=== PATIENT | female | born 1995 | race Two or more races ===

== ENCOUNTER 2018-02-13 23:16 | Emergency (ER) | payer MEDICAID ==
[~2018-02-13] VITALS: Ht 170.2 cm; Wt 99.8 kg
[2018-02-13 23:22] VITALS: BP 149/80
[2018-02-14] MEDS ORDERED: KETOROLAC TROMETH 60MG/2ML VIAL IM ONE (01:30)
[2018-02-14] MEDS ORDERED: HYDROcodone-ACET 10/325MG TAB PO ONE (01:45)
== END 2018-02-14 01:36 | disposition home or self-care (01) ==
LOC: ER 23:20
DX: S93.401A Sprain of unspecified ligament of right ankle, initial encounter (principal); X50.0XXA Overexertion from strenuous movement or load, initial encounter; Y93.89 Activity, other specified; Y99.8 Other external cause status; Y92.89 Other specified places as the place of occurrence of the external cause
CPT/HCPCS: 29515; 73610; 96372; 99284; J1885

== ENCOUNTER 2018-08-09 06:12 | Emergency (ER) | payer MEDICAID ==
[~2018-08-09] VITALS: Ht 172.7 cm; Wt 99.8 kg
[2018-08-09 08:53] VITALS: BP 165/87
== END 2018-08-09 09:24 | disposition home or self-care (01) ==
LOC: ER 06:12
DX: J03.90 Acute tonsillitis, unspecified (principal); J40 Bronchitis, not specified as acute or chronic
CPT/HCPCS: 71046

== ENCOUNTER 2019-04-24 19:29 | Emergency (ER) | payer SELFPAY ==
[~2019-04-24] VITALS: Ht 172.7 cm; Wt 102.1 kg
[2019-04-24] MEDS ORDERED: DexAMETHasone SOD PHOS 10MG/1ML VIAL INJ IM ONE (21:15)
[2019-04-24] MEDS ORDERED: ACETAMINOPHEN/CODEINE#3 (300/30mg) TAB PO ONE (21:15)
[2019-04-24 21:49] VITALS: BP 128/73
== END 2019-04-24 22:00 | disposition home or self-care (01) ==
LOC: ER 19:29
DX: G44.209 Tension-type headache, unspecified, not intractable (principal); J40 Bronchitis, not specified as acute or chronic; J06.9 Acute upper respiratory infection, unspecified
CPT/HCPCS: 96372; 99283; J1100

== ENCOUNTER 2020-10-01 11:44 | Emergency (ER) | payer SELFPAY ==
[~2020-10-01] VITALS: Ht 172.7 cm; Wt 104.3 kg
[2020-10-01 11:45] VITALS: BP 133/61
== END 2020-10-01 14:09 | disposition home or self-care (01) ==
LOC: ER 11:44
DX: H10.32 Unspecified acute conjunctivitis, left eye (principal)

== ENCOUNTER 2020-12-24 10:11 | Emergency (ER) | payer SELFPAY ==
[~2020-12-24] VITALS: Ht 170.2 cm; Wt 106.6 kg
[2020-12-24 10:44] LABS: Basophils # (auto) 0.1 10 ^3/uL (0-0.2); Eosinophils # (auto) 0.2 10 ^3/uL (0-0.8); Eosinophils % (auto) 1.7 % (0.0-7.0); Hematocrit 40.4 % (36.0-46.0); Hemoglobin 14.1 g/dL (12.2-16.2); Lymphocytes # (auto) 3.3 10 ^3/uL (0.4-5.4); Lymphocytes % (auto) 33.4 % (10.0-50.0); Mean Corpuscular Hemoglobin 32.4 pg (28.0-32.0); Mean Corpuscular Hgb Conc. 34.9 g/dL (32.0-36.0); Mean Corpuscular Volume 92.8 fL (80.0-100.0); Monocytes # (auto) 0.5 10 ^3/uL (0-1.3); Monocytes % (auto) 4.7 % (0.0-12.0); Neutrophils # (auto) 5.8 10 ^3/uL (1.6-8.6); Neutrophils % (auto) 59.2 % (37.0-80.0); Nucleated Red Blood Cells % 0.2 %; Platelet Count (auto) 264 10^3/uL (140-450); Red Blood Cells 4.36 10^6/uL (4.0-5.20); Red Cell Distribution Width 12.5 % (11.8-14.3); White Blood Cell 9.8 10^3/uL (4.4-10.8)
[2020-12-24 10:46] LABS: Urine Bacteria NONE SEEN /hpf (None Seen); Urine Blood Negative /uL (Negative); Urine Specific Gravity 1.021 (1.001-1.035); Urine WBC 1 /hpf (0 - 5)
[2020-12-24 10:51] VITALS: BP 140/98
[2020-12-24 10:59] LABS: Calcium 8.9 mg/dL (8.5-10.1); Potassium 4.1 mmol/L (3.5-5.1)
[2020-12-24 11:01] LABS: BUN/Creatinine Ratio 13.4
[2020-12-24] MEDS ORDERED: KETOROLAC TROMETH 60MG/2ML VIAL IM ONE (11:45)
[2020-12-24 12:06] LABS: Alanine Aminotransferase 93 U/L (13-56); Albumin 4.1 g/dL (3.4-5.0); Alkaline Phosphatase 67 U/L (45-117); Aspartate Aminotransferase 45 U/L (15-37); Bilirubin, Direct < 0.1 mg/dL (0-0.2); Bilirubin, Total 0.3 mg/dL (0.2-1.0); Lipase 79 U/L (73-393); Total Protein 8.1 g/dL (6.4-8.2)
== END 2020-12-24 12:44 | disposition home or self-care (01) ==
LOC: ER 10:11
DX: R10.9 Unspecified abdominal pain (principal); K86.2 Cyst of pancreas
CPT/HCPCS: 36415; 74176; 80048; 80076; 81001; 81025; 83690; 85025; 85049; 96372; 99284; J1885

== ENCOUNTER 2021-04-24 11:32 | Emergency (ER) | payer SELFPAY ==
[~2021-04-24] VITALS: Ht 170.2 cm; Wt 117.9 kg
[2021-04-24 12:46] LABS: Urine Bacteria FEW /hpf (None Seen); Urine Blood 2+ /uL (Negative); Urine Specific Gravity 1.024 (1.001-1.035); Urine WBC 11 /hpf (0 - 5)
[2021-04-24 13:32] LABS: Basophils # (auto) 0 10 ^3/uL (0-0.2); Basophils % (auto) 0.4 % (0.0-2.0); Eosinophils # (auto) 0.1 10 ^3/uL (0-0.8); Hematocrit 41.1 % (36.0-46.0); Lymphocytes % (auto) 30.9 % (10.0-50.0); Mean Corpuscular Hemoglobin 32.1 pg (28.0-32.0); Mean Corpuscular Hgb Conc. 34.1 g/dL (32.0-36.0); Mean Corpuscular Volume 94.1 fL (80.0-100.0); Monocytes # (auto) 0.5 10 ^3/uL (0-1.3); Monocytes % (auto) 4.9 % (0.0-12.0); Neutrophils % (auto) 62.8 % (37.0-80.0); Nucleated Red Blood Cells % 0.1 %; Red Blood Cells 4.37 10^6/uL (4.0-5.20); Red Cell Distribution Width 12.5 % (11.8-14.3); White Blood Cell 9.6 10^3/uL (4.4-10.8)
[2021-04-24 13:41] LABS: Albumin 4.3 g/dL (3.4-5.0); Calcium 9.5 mg/dL (8.5-10.1); Potassium 4.5 mmol/L (3.5-5.1)
[2021-04-24 13:43] LABS: INR 1.05 (0.9-1.15)
[2021-04-24 13:44] LABS: BUN/Creatinine Ratio 15.8; Bilirubin, Total 0.3 mg/dL (0.2-1.0); Total Protein 8.1 g/dL (6.4-8.2)
[2021-04-24] MEDS ORDERED: ACETAMINOPHEN 325 MG TAB PO ONE (15:00)
[2021-04-24 15:50] VITALS: BP 132/73
== END 2021-04-24 13:27 | disposition home or self-care (01) ==
LOC: ER 11:32
DX: N39.0 Urinary tract infection, site not specified (principal); F12.10 Cannabis abuse, uncomplicated
CPT/HCPCS: 36415; 80053; 81001; 83605; 83690; 83735; 84702; 85025; 85610

== ENCOUNTER 2021-06-25 01:24 | Emergency (ER) | payer MEDICAID, SELFPAY ==
[~2021-06-25] VITALS: Ht 172.7 cm; Wt 108.9 kg
[2021-06-25 01:44] VITALS: BP 142/61
[2021-06-25] MEDS ORDERED: IBUPROFEN 800 MG TAB PO ONE (05:00)
[2021-06-25] MEDS ORDERED: ACETAMINOPHEN 500 MG TAB PO ONE (05:00)
[2021-06-25] MEDS ORDERED: IBUP800T27 PO (05:15)
[2021-06-25] MEDS ORDERED: ONDA-144 PO (05:15)
== END 2021-06-25 05:36 | disposition home or self-care (01) ==
LOC: ER 01:24
DX: J06.9 Acute upper respiratory infection, unspecified (principal); F12.10 Cannabis abuse, uncomplicated; Z20.822 Contact with and (suspected) exposure to COVID-19
CPT/HCPCS: 36415; 80329; 87426

== ENCOUNTER 2025-05-01 08:46 | Inpatient (IN) | payer MEDICAID, OTHER ==
[~2025-05-01] VITALS: Ht 170.2 cm; Wt 106.0 kg
[~2025-05-01 08:46] MED LIST: IBUP-1456 PO; ONDA-144 PO
[2025-05-01] MEDS: SODIUM CHLORIDE 0.9% 1,000 ML IV ONE ×2 (09:45→12:15)
--- NOTE | 2025-05-01 09:46 | ED.PDOC ---
GI ASSESSMENT HPI Comments Ms. Herman is a 29-year-old female with prior history of cholelithiasis, who presents today with chief complaint of abdominal pain. The patient refers that for the last 4 days she has had pressure/stabbing pain in right lower quadrant which radiates towards her groin, 10/10 intensity, worsens with sitting still or changing positions, associated with nausea, vomiting, diaphoresis, chills, without relieving factors. She denies fever, palpitations, diarrhea, hematuria, dysuria, changes in urine, back pain, chest pain, and shortness of breath. Due to persistence of symptoms, she presents to the emergency department for evaluation. On initial evaluation, the patient seems uncomfortable due to pain, diaphoretic, hypertensive, with other vitals within normal range. Chief Complaint: Abdominal Pain Time Seen by MD: 09:03 Primary Care Provider: NONE Reviewed Notes: Nurses Notes, Medications, Allergies (No allergies to medications) Allergies: Coded Allergies: NO KNOWN ALLERGIES (Unverified , 10/01/20) Home Meds Active Scripts Ondansetron (Zofran) 4 Mg Tab, 1 TAB PO Q6HR, #20 TAB 0 Refills Prov:KALEB SINGH 06/25/21 Ibuprofen (Ibuprofen) 800 Mg Tab, 1 TAB PO TID for 10 Days, #30 TAB 0 Refills Prov:KALEB SINGH 06/25/21 Information Source: Patient Mode of Arrival: Ambulatory Timing: Days Duration: Since onset Prehospital treatment: None Quality: Stabbing Vomitus: Watery Stool: Normal Severity: Moderate Recent: None Recent Hx of: None Pain Location: RLQ Modifying Factors: Movement, Lying still Associated sign and symptoms: Nausea, Vomiting Past Medical History Past Medical History (Other): Cholelithiasis Surgical History: Denies all surgeries [employer] History: No Pertinent [employer] History Family History Family History: Reviewed,noncontributory to illness Social History Smoker: Non-Smoker Alcohol: Denies ETOH Use Drugs: Marijuana Lives In: Home Constitutional: reports: chills, diaphoresis; denies: fatigue, fever, malaise, sweats, weakness EENTM: denies: blurred vision, double vision, nasal discharge, nose congestion, photophobia, throat pain Respiratory: denies: cough, hemoptysis, orthopnea, shortness of breath Cardiovascular: denies: chest pain, dizzy spells, diaphoresis, Dyspnea on exertion, edema, irregular heart beat, left arm pain, lightheadedness, palpitations, syncope Gastrointestinal: reports: abdominal pain, nausea, vomiting; denies: abdomen distended, constipated, diarrhea, hematemesis, melena, poor appetite, poor fluid intake, rectal bleeding Genitourinary: denies: burning, dysuria, flank pain, frequency, hematuria, incontinence, pain, urgency Neurological: reports: dizziness; denies: fainting, headache, numbness, paresthesia, pre-existing deficit, seizure, speech problems, tingling, tremors, weakness Musculoskeletal: denies: back pain, joint pain, joint swelling, muscle pain, muscle stiffness, neck pain Integumetry: denies: bruises, laceration, lesions, lumps, rash, wounds Physical Exam General Appearance: Moderate Distress, Obese HEENT: Normal ENT Inspection, PERRL/EOMI, Pharynx Normal Neck: Full Range of Motion, Non-Tender, Normal Inspection Respiratory: Chest Non-Tender, Lungs Clear, No Accessory Muscle Use, No Respira tory Distress, Normal Breath Sounds Cardiovascular: No Edema, No Murmur, Normal Peripheral Pulses, Regular Rate/Rhythm Breast Exam: Deferred Gastrointestinal: Other ( Obese, Abdomen nondistended, normoactive bowel sounds, pain to palpation in bilateral lower quadrants, mild right CVA tenderness) Genitalia: Deferred Pelvic: Deferred Rectal: Deferred Extremities: Normal capillary refill, Normal inspection, Normal range of motion, Non-tender, No pedal edema Neurologic: Alert, Normal Affect, Normal Mood Cerebellar Function: Normal Reflexes: NOT DONE Skin: Normal Color Peripheral Pulses: 3+ dorsalis pedis (R), 3+ dorsalis pedis (L) Lymphatic: Other (No cervical adenopathy) Was a procedure done? Was a procedure done?: No GI differential Dx Differential Diagnosis: Appendicitis, Complete , Incomplete , Inevitable , Missed , Bowel Obstruction, Cholangitis, Cholecystitis, Constipation, Diverticular disease, Ectopic , Gastritis/PUD, Gastroenteritis, Hepatitis, Pancreatitis, Urinary Obstruction, UTI, Urolithiasis X-Ray, Labs, Meds, VS Vital Signs Date Time Temp Pulse Resp B/P (MAP) Pulse Ox O2 Delivery O2 Flow Rate FiO2 05/01/25 12:21 97.6 55 16 138/78 (98) 100 97.6 05/01/25 10:31 62 17 153/82 05/01/25 10:10 97.6 62 17 153/82 (105) 100 97.6 05/01/25 10:10 62 17 100 Room Air 05/01/25 08:55 97.6 70 20 160/93 100 97.6 Lab Test 05/01/25 10:16 05/01/25 10:02 Range/Units White Blood Count 11.8 H 4.4-10.8 10^3/uL Red Blood Count 4.20 4.0-5.20 10^6/uL Hemoglobin 13.1 12.2-16.2 g/dL Hematocrit 38.8 36.0-46.0 % Mean Corpuscular Volume 92.2 80.0-100.0 fL Mean Corpuscular Hemoglobin 31.1 28.0-32.0 pg Mean Corpuscular Hemoglobin Concent 33.7 32.0-36.0 g/dL Red Cell Distribution Width 12.8 11.8-14.3 % Platelet Count 282 140-450 10^3/uL Mean Platelet Volume 9.9 6.9-10.8 fL Neutrophils (%) (Auto) 82.2 H 37.0-80.0 % Lymphocytes (%) (Auto) 14.6 10.0-50.0 % Monocytes (%) (Auto) 2.5 0.0-12.0 % Eosinophils (%) (Auto) 0.4 0.0-7.0 % Basophils (%) (Auto) 0.3 0.0-2.0 % Neutrophils # (Auto) 9.7 H 1.6-8.6 10 ^3/uL Lymphocytes # (Auto) 1.7 0.4-5.4 10 ^3/uL Monocytes # (Auto) 0.3 0-1.3 10 ^3/uL Eosinophils # (Auto) 0 0-0.8 10 ^3/uL Basophils # (Auto) 0 0-0.2 10 ^3/uL Nucleated Red Blood Cells 0.1 % Sodium Level 142 136-145 mmol/L Potassium Level 3.1 L 3.5-5.1 mmol/L Chloride Level 106 98-107 mmol/L Carbon Dioxide Level 23 20-31 mmol/L Anion Gap 13 5-15 Blood Urea Nitrogen 10 9-23 mg/dL Creatinine 0.73 0.550-1.02 mg/dL Glomerular Filtration Rate Calc 114 >90 mL/min BUN/Creatinine Ratio 13.7 10.0-20.0 Serum Glucose 136 H 74-106 mg/dL Calcium Level 9.4 8.7-10.4 mg/dL Total Bilirubin 0.5 0.2-1.0 mg/dL Aspartate Amino Transferase (AST) 16 13-40 U/L Alanine Aminotransferase (ALT) 18 7-40 U/L Alkaline Phosphatase 54 46-116 U/L Total Protein 7.8 5.7-8.2 g/dL Albumin 4.8 3.2-4.8 g/dL Lipase 40 12-53 U/L Urine Color Light-yellow Yellow Urine Clarity Clear Clear Urine pH 5.0 5.0-9.0 Urine Specific [place] 1.025 1.001-1.035 Urine Protein Trace H Negative Urine Ketones 1+ H Negative Urine Blood 2+ H Negative /uL Urine Nitrite Negative Negative Urine Bilirubin Negative Negative Urine Urobilinogen Normal Negative mg/dL Urine Leukocyte Esterase Negative Negative /uL Urine RBC 2 0 - 4 /hpf Urine Microscopic WBC < 1 0-5 /HPF Urine Squamous Epithelial Cells Few <5 /hpf Urine Bacteria None seen None Seen /hpf Urine Mucus Few None Seen Urine Yeast (Budding) Occasional None Seen /hpf Urine Glucose Normal Normal mg/dL Urine Test Negative Negative Urine Opiates Screen Pending Urine Fentanyl Screen Pending Urine Barbiturates Screen Pending Urine Phencyclidine Screen Pending Urine Amphetamines Screen Pending Urine Benzodiazepines Screen Pending Urine Cocaine Screen Pending Urine Cannabinoids Screen Pending Current Medications Medications (Trade) Dose Ordered Sig/Devin Route Start Time Stop Time Status Last Admin Sodium Chloride 1,000 ml @ 1,000 mls/hr Q1H ONCE IV 05/01/25 09:45 05/01/25 10:44 DC 05/01/25 09:45 Ondansetron HCl (Zofran) 4 mg ONCE ONCE IV 05/01/25 09:45 05/01/25 09:48 DC 05/01/25 10:30 Morphine Sulfate 2 mg ONCE ONCE IV 05/01/25 09:45 05/01/25 09:48 DC 05/01/25 10:31 Ketorolac Tromethamine (Toradol Injection) 30 mg ONCE ONCE IV 05/01/25 11:30 05/01/25 11:31 DC 05/01/25 11:51 Sodium Chloride 1,000 ml @ 1,000 mls/hr Q1H ONCE IV 05/01/25 11:45 05/01/25 12:44 DC 05/01/25 12:15 IV Hep-Lock was established The patient was given a normal saline at 1 L bolus. The patient was given Zofran 4 mg IV push The patient was given morphine 2 mg IV push for the pain The patient was given ketorolac 30 mg IV push The patient was given a 1 L bolus of normal saline The patient's urine test is positive for ketones The CBC shows an elevated white blood cell count of 11.8 The rest of the CBC is within normal limits The patient is still having persistent vomiting The patient's CAT scan of the abdomen and pelvis shows: Impression: No acute noncontrast CT abnormality of the abdomen/pelvis. Mildly enlarging 3 cm pancreatic body / neck cyst. Recommend nonemergent MRI/ MRCP with and without IV contrast for further evaluation At this time the patient is being admitted Images Reviewed?: Images reviewed and evaluated by me Time of 1ST Reevaluation: 11:45 Reevaluation 1ST: Improved Patient Education/Counseling: Diagnosis, Treatment Family Education/Counseling: Diagnosis, Treatment Comments The patient presents today with chief complaint of abdominal pain Initial evaluation, the patient seems distress due to pain, diaphoretic, hypotensive, saturating appropriately on room air Physical exam is positive for pain on palpation of all quadrants concentrated mainly in right lower quadrant CBC shows mild leukocytosis with neutrophilia, CMP is significant for hypokalemia at 3.1, LFTs and lipase are within normal range , UA without significant findings, urine test is negative Abdominal CT with contrast shows no acute intra-abdominal findings except for a mildly enlarging 3 cm pancreatic neck/body cyst, of which the patient is already aware The patient has been given morphine 2 mg IV and Toradol IV for pain, 2 1000 cc NS boluses, and Zofran 4 mg IV for nausea, potassium 50 mEq effervescent tablet On re-evaluation, the patient still presents intense pain and nausea, continues to be hypertensive, other vitals are within normal range The patient will be admitted for further workup and fluid resuscitation and pain management SEPSIS Sepsis Screen Date sepsis recognized/suspect: May 01, 2025 Time Sepsis recognized/suspect: 0857 Recent Procedure: No On Antibiotic Therapy: No Respiratory Rate >20: No Heart Rate >90: No Temp<36 C (96.8 F) or >38.3 C: No SBP <90 or MAP <65 mmHG: No New Acute Mental Status Change: No Is the patient on CPAP, BIPAP,: No Physician Orders Ct Ab Pel Wo Con-No Oral Or Iv (05/01/25 09:42) Drug Screen (05/01/25 10:26) Vital Signs Date Time Temp Pulse Resp B/P (MAP) Pulse Ox O2 Delivery O2 Flow Rate FiO2 05/01/25 12:21 97.6 55 16 138/78 (98) 100 97.6 05/01/25 10:31 62 17 153/82 05/01/25 10:10 97.6 62 17 153/82 (105) 100 97.6 05/01/25 10:10 62 17 100 Room Air 05/01/25 08:55 97.6 70 20 160/93 100 97.6 Laboratory Tests Test 05/01/25 10:16 White Blood Count 11.8 10^3/uL (4.4-10.8) H Medications Medications Dose Ordered Sig/Devin Route Start Time Stop Time Status Last Admin Dose Admin Ketorolac Tromethamine 30 mg ONCE ONCE IV 05/01/25 11:30 05/01/25 11:31 DC 05/01/25 11:51 Morphine Sulfate 2 mg ONCE ONCE IV 05/01/25 09:45 05/01/25 09:48 DC 05/01/25 10:31 Ondansetron HCl 4 mg ONCE ONCE IV 05/01/25 09:45 05/01/25 09:48 DC 05/01/25 10:30 Sodium Chloride 1,000 ml @ 1,000 mls/hr Q1H ONCE IV 05/01/25 09:45 05/01/25 10:44 DC 05/01/25 09:45 Sodium Chloride 1,000 ml @ 1,000 mls/hr Q1H ONCE IV 05/01/25 11:45 05/01/25 12:44 DC 05/01/25 12:15 Departure 1 Departure Time of Disposition: 12:33 Impression: Primary Impression: Intractable abdominal pain Disposition: ADMITTED INPATIENT Admit to: Med Surg Condition: Stable Critical Care Note Critical Care Time?: No Stability Stability form required: Yes Unstable for transfer: ED Physician Assesment (Clinical assesment) Heart Score Heart Score: Heart Score Response (Comments) Value History N/A 0 EKG N/A 0 Age N/A 0 Risk Factors N/A 0 Troponin N/A 0 Total 0 HOLLY MCCAULEY May 01, 2025 09:46 LATISHA HARRIS MD May 01, 2025 12:46
[2025-05-01 10:17] LABS: Urine Budding Yeast OCCASIONAL /hpf (None Seen); Urine Protein, UAD TRACE (Negative)
[2025-05-01] MEDS: ONDANSETRON HCL 4 MG/2 ML VIAL IV ONE ×2 (10:30→12:22)
[2025-05-01] MEDS: MORPHINE SULFATE INJ 2 MG/ml SYRG IV ONE (10:31)
[2025-05-01 10:55] LABS: Hematocrit 38.8 % (36.0-46.0); Hemoglobin 13.1 g/dL (12.2-16.2); Mean Corpuscular Hemoglobin 31.1 pg (28.0-32.0); Mean Corpuscular Volume 92.2 fL (80.0-100.0); Nucleated Red Blood Cells % 0.1 %
--- NOTE | 2025-05-01 10:57 | DVH ---
CLINICAL HISTORY: Abdominal pain TECHNIQUE: CT of the abdomen and pelvis was performed without IV contrast. This exam was performed according to our departmental dose optimization program. Up-to-date CT equipment and radiation dose reduction techniques are utilized as appropriate. CTDI 22 DLP 1170 COMPARISON: US ABDOMEN COMPLETE on DOS: 04/20/23, CT ABD PELVIS WO CONTRAST on DOS: 12/24/20 FINDINGS: Abdomen/Pelvis: The spleen, adrenal glands, kidneys, gallbladder, liver, bladder, and uterus are grossly unremarkable. There is a 3 cm hypodense lesion within the pancreatic neck / body, slightly increased in size from previous study. The abdominal aorta is normal in course and caliber. There are no significant atherosclerotic calcifications. There is no free intraperitoneal air or fluid. There is no enlarged abdominal pelvic lymph node. There is no bowel wall thickening or dilatation. The appendix is normal. Other: The imaged lower thorax is unremarkable. No acute osseous abnormality is evident. Impression: No acute noncontrast CT abnormality of the abdomen/pelvis. Mildly enlarging 3 cm pancreatic body / neck cyst. Recommend nonemergent MRI/ MRCP with and without IV contrast for further evaluation
[2025-05-01 11:11] LABS: Alanine Aminotransferase 18 U/L (7-40); Albumin 4.8 g/dL (3.2-4.8); Alkaline Phosphatase 54 U/L (46-116); Anion Gap 13 (5-15); BUN/Creatinine Ratio 13.7 (10.0-20.0); Bilirubin, Total 0.5 mg/dL (0.2-1.0); Blood Urea Nitrogen 10 mg/dL (9-23); Calcium 9.4 mg/dL (8.7-10.4); Carbon Dioxide 23 mmol/L (20-31); Chloride 106 mmol/L (98-107); Sodium 142 mmol/L (136-145); Total Protein 7.8 g/dL (5.7-8.2)
[2025-05-01 11:16] LABS: Glucose 136 mg/dL (74-106); Potassium 3.1 mmol/L (3.5-5.1)
[2025-05-01] MEDS ORDERED: POTASSIUM CHL 20MEQ/100ML 100 ML IV SCH (11:30)
[2025-05-01 11:42] LABS: Lipase 40 U/L (12-53)
[2025-05-01] MEDS: KETOROLAC TROMETH 30 MG/ML 1ML VIAL IV ONE (11:51)
[2025-05-01] MEDS: POTASSIUM EFFERVESENT TAB 25 MEQ PO ONE (12:48)
[2025-05-01] MEDS ORDERED: ONDANSETRON HCL 4 MG/2 ML VIAL IV PRN (14:45)
[2025-05-01] MEDS ORDERED: NITROGLYCERIN 0.4 MG SL TAB SL PRN (14:45)
[2025-05-01] MEDS ORDERED: MORPHINE SULFATE INJ 2 MG/ml SYRG IV PRN ×2 (14:45)
[2025-05-01] MEDS ORDERED: ACETAMINOPHEN 325 MG TAB PO PRN (14:45)
--- NOTE | 2025-05-01 15:18 | DVHHPRES ---
History of Present Illness Resident Creating Document: RUPESH HANCOCK RESIDENT History of Present Illness Ms. Herman is a 29-year-old female with prior history of cholelithiasis, who presents today with chief complaint of abdominal pain. The patient refers that for the last 4 days she has had pressure/stabbing pain in right lower quadrant which radiates towards her groin, 10/10 intensity, worsens with sitting still or changing positions, associated with nausea, vomiting, diaphoresis, chills, bloating without relieving factors. patient reported that she is sexually active with 1 male partner, recently have STI panel which was negative. She denies fever, palpitations, diarrhea, hematuria, dysuria, changes in urine, back pain, chest pain, and shortness of breath. PMH: Cholelithiasis PSH: None Family history: None Social history: Lives at home. Smokes marijuana but denies tobacco, alcohol and other drug abuse Allergies: No known allergies Home medications: None Patient seen and examined at the bedside. Patient is currently reporting abdominal pain which is 5/10 in intensity due to pain management denies nausea, vomiting. Rest of ROS is negative Review of Systems Allergies: Coded Allergies: NO KNOWN ALLERGIES (Unverified , 10/01/20) Medications Current Medications Medications Dose Ordered Sig/Devin Route Start Time Stop Time Status Last Admin Dose Admin Sodium Chloride 10 ml Q8HR IV 05/01/25 22:00 Ondansetron HCl 4 mg Q4HP PRN IV 05/01/25 14:45 Acetaminophen 650 mg Q6HP PRN PO 05/01/25 14:45 Morphine Sulfate 2 mg Q4HPRN PRN IV 05/01/25 14:45 Nitroglycerin 0.4 mg Q5MINP PRN SL 05/01/25 14:45 Morphine Sulfate 2 mg Q30M PRN IV 05/01/25 14:45 Pantoprazole Sodium 40 mg DAILY IV 05/02/25 10:00 UNV Exam Vital Signs Vital Signs Date Time Temp Pulse Resp B/P (MAP) Pulse Ox O2 Delivery O2 Flow Rate FiO2 05/01/25 12:21 55 16 138/78 05/01/25 12:21 97.6 100 97.6 05/01/25 10:10 Room Air Exam Pt is lying on bed General Appearance: Alert, Oriented X3, Cooperative, Not in acute distress HEENT: Atraumatic, Mucous membranes moist/pink Respiratory: Clear to auscultation, Normal air movement, No added sounds Cardiovascular: Regular rate, Normal S1, Normal S2, No murmurs Abdominal: Active bowel sounds, Soft, no distention, right upper quadrant and suprapubic tenderness Extremities: No edema, Normal pulses, No tenderness/swelling Skin: No Significant rash, except past surgical scars Neuro: Normal speech, sensorimotor deficits none Psych/Mental Status: Mental status NL, Mood NL Nurse was there as abrasive grader during examination Labs/Xrays Labs Test 05/01/25 10:16 05/01/25 10:02 Range/Units White Blood Count 11.8 H 4.4-10.8 10^3/uL Red Blood Count 4.20 4.0-5.20 10^6/uL Hemoglobin 13.1 12.2-16.2 g/dL Hematocrit 38.8 36.0-46.0 % Mean Corpuscular Volume 92.2 80.0-100.0 fL Mean Corpuscular Hemoglobin 31.1 28.0-32.0 pg Mean Corpuscular Hemoglobin Concent 33.7 32.0-36.0 g/dL Red Cell Distribution Width 12.8 11.8-14.3 % Platelet Count 282 140-450 10^3/uL Mean Platelet Volume 9.9 6.9-10.8 fL Neutrophils (%) (Auto) 82.2 H 37.0-80.0 % Lymphocytes (%) (Auto) 14.6 10.0-50.0 % Monocytes (%) (Auto) 2.5 0.0-12.0 % Eosinophils (%) (Auto) 0.4 0.0-7.0 % Basophils (%) (Auto) 0.3 0.0-2.0 % Neutrophils # (Auto) 9.7 H 1.6-8.6 10 ^3/uL Lymphocytes # (Auto) 1.7 0.4-5.4 10 ^3/uL Monocytes # (Auto) 0.3 0-1.3 10 ^3/uL Eosinophils # (Auto) 0 0-0.8 10 ^3/uL Basophils # (Auto) 0 0-0.2 10 ^3/uL Nucleated Red Blood Cells 0.1 % Sodium Level 142 136-145 mmol/L Potassium Level 3.1 L 3.5-5.1 mmol/L Chloride Level 106 98-107 mmol/L Carbon Dioxide Level 23 20-31 mmol/L Anion Gap 13 5-15 Blood Urea Nitrogen 10 9-23 mg/dL Creatinine 0.73 0.550-1.02 mg/dL Glomerular Filtration Rate Calc 114 >90 mL/min BUN/Creatinine Ratio 13.7 10.0-20.0 Serum Glucose 136 H 74-106 mg/dL Calcium Level 9.4 8.7-10.4 mg/dL Total Bilirubin 0.5 0.2-1.0 mg/dL Aspartate Amino Transferase (AST) 16 13-40 U/L Alanine Aminotransferase (ALT) 18 7-40 U/L Alkaline Phosphatase 54 46-116 U/L Total Protein 7.8 5.7-8.2 g/dL Albumin 4.8 3.2-4.8 g/dL Lipase 40 12-53 U/L Urine Color Light-yellow Yellow Urine Clarity Clear Clear Urine pH 5.0 5.0-9.0 Urine Specific [place] 1.025 1.001-1.035 Urine Protein Trace H Negative Urine Ketones 1+ H Negative Urine Blood 2+ H Negative /uL Urine Nitrite Negative Negative Urine Bilirubin Negative Negative Urine Urobilinogen Normal Negative mg/dL Urine Leukocyte Esterase Negative Negative /uL Urine RBC 2 0 - 4 /hpf Urine Microscopic WBC < 1 0-5 /HPF Urine Squamous Epithelial Cells Few <5 /hpf Urine Bacteria None seen None Seen /hpf Urine Mucus Few None Seen Urine Yeast (Budding) Occasional None Seen /hpf Urine Glucose Normal Normal mg/dL Urine Test Negative Negative SEPSIS Sepsis Screen Date sepsis recognized/suspect: May 01, 2025 Time Sepsis recognized/suspect: 08 Recent Procedure: No On Antibiotic Therapy: No Respiratory Rate >20: No Heart Rate >90: No Temp<36 C (96.8 F) or >38.3 C: No SBP <90 or MAP <65 mmHG: No New Acute Mental Status Change: No Is the patient on CPAP, BIPAP,: No Physician Orders Ct Ab Pel Wo Con-No Oral Or Iv (05/01/25 09:42) Drug Screen (05/01/25 10:26) Admit (05/01/25 14:45) Allergies (05/01/25 14:45) Code Status (05/01/25 14:45) Sodium Chloride Lock (Saline Lock Ns) (05/01/25 22:00) Ondansetron Hcl (Zofran) (05/01/25 14:45) Complete Blood Count (05/02/25 04:00) Comprehensive Metabolic Panel (05/02/25 04:00) Condition: Fair (05/01/25 14:45) Acetaminophen Tablet (Tylenol Tablet) (05/01/25 14:45) Clear Liq Diet (05/01/25 Dinner) Morphine Sulfate Injection (05/01/25 14:45) Nitroglycerin Sublingual (Ntrostat Subli (05/01/25 14:45) Morphine Sulfate Injection (05/01/25 14:45) Oxygen By Nasal Cannula (05/01/25 14:45) Stat Ekg For Chest Pain (05/01/25 14:45) Notify Of Changes From Base (05/01/25 14:45) Detail Manager For 24 Hours (05/01/25 14:45) Emergency Dysrhythmia Protocol (05/01/25 14:45) Rhythm Strips Once Every Shift (05/01/25 14:45) Gallbladder (05/01/25 14:45) Pantoprazole (Protonix) (05/02/25 10:00) Blood Culture (05/01/25 15:13) Vital Signs Date Time Temp Pulse Resp B/P (MAP) Pulse Ox O2 Delivery O2 Flow Rate FiO2 05/01/25 12:21 55 16 138/78 05/01/25 12:21 97.6 55 16 138/78 (98) 100 97.6 05/01/25 10:31 62 17 153/82 05/01/25 10:10 97.6 62 17 153/82 (105) 100 97.6 05/01/25 10:10 62 17 100 Room Air 05/01/25 08:55 97.6 70 20 160/93 100 97.6 Laboratory Tests Test 05/01/25 10:16 White Blood Count 11.8 10^3/uL (4.4-10.8) H Medications Medications Dose Ordered Sig/Devin Route Start Time Stop Time Status Last Admin Dose Admin Ketorolac Tromethamine 30 mg ONCE ONCE IV 05/01/25 11:30 05/01/25 11:31 DC 05/01/25 11:51 30 MG Morphine Sulfate 2 mg ONCE ONCE IV 05/01/25 09:45 05/01/25 09:48 DC 05/01/25 10:31 2 MG Ondansetron HCl 4 mg ONCE ONCE IV 05/01/25 09:45 05/01/25 09:48 DC 05/01/25 10:30 4 MG Potassium Bicarbonate 50 meq ONCE ONCE PO 05/01/25 12:30 05/01/25 12:31 DC 05/01/25 12:48 50 MEQ Sodium Chloride 1,000 ml @ 1,000 mls/hr Q1H ONCE IV 05/01/25 09:45 05/01/25 10:44 DC 05/01/25 09:45 1,000 MLS/HR Sodium Chloride 1,000 ml @ 1,000 mls/hr Q1H ONCE IV 05/01/25 11:45 05/01/25 12:44 DC 05/01/25 12:15 1,000 MLS/HR Assessment/Plan Assessment/Plan Acute abdominal pain R/o acute cholecystitis Rule out acute appendicitis Possible symptomatic cholelithiasis Rule out pelvic pathology HX of pancreatic cyst Rule out SIRS - admit med surge - gallbladder ultrasound pending - CT abdomen pelvis no acute changes except pancreatic cyst - symptomatic management - liquid diet if tolerates - consider surgical consult depend upon ultrasound results - Monitor lab Hypokalemia - Repleting - Monitor lab Obesity class 2 with a BMI 36.6 - patient counseled regarding lifestyle modifications including diet and exercise Marijuana use disorder - Counseled regarding cessation for more than 17 minutes Elevated blood pressure likely from pain PUD PPX: Protonix DVT PPX: Ambulatory Diet: Liquid diet Goals of care discussed with the patient for more than 27 minutes: Full code st [facility] Case discussed with Dr. Cuenca Plan discussed with: Patient My Orders Orders - RUPESH HANCOCK RESIDENT Procedure Category Date Status Time Admit ADMIT 05/01/25 Transmitted 14:45 Allergies DAWNA 05/01/25 In Process 14:45 Code Status CODE 05/01/25 Transmitted 14:45 Sodium Chloride Lock PHA 05/01/25 In Process (Saline Lock Ns) 22:00 Ondansetron Hcl PHA 05/01/25 In Process (Zofran) 14:45 Complete Blood Count LAB 05/02/25 Verified 04:00 Comprehensive LAB 05/02/25 Verified Metabolic Panel 04:00 Condition: Fair DAWNA 05/01/25 In Process 14:45 Acetaminophen Tablet PHA 05/01/25 In Process (Tylenol Tablet) 14:45 Clear Liq Diet DIET 05/01/25 Transmitted Dinner Morphine Sulfate PHA 05/01/25 In Process Injection 14:45 Nitroglycerin PHA 05/01/25 In Process Sublingual (Ntrostat 14:45 Morphine Sulfate PHA 05/01/25 In Process Injection 14:45 Oxygen By Nasal RT 05/01/25 Transmitted Cannula 14:45 Stat Ekg For Chest DAWNA 05/01/25 In Process Pain 14:45 Notify Md Of Changes [facility] 05/01/25 In Process From Base 14:45 Detail Manager For [facility] 05/01/25 In Process 24 Hours 14:45 Emergency Dysrhythmia [facility] 05/01/25 In Process Protocol 14:45 Rhythm Strips Once [facility] 05/01/25 In Process Every Shift 14:45 Gallbladder US 05/01/25 Logged 14:45 Pantoprazole PHA 05/02/25 Transmitted (Protonix) 10:00 Blood Culture [facility] 05/01/25 Verified 15:13 Date of Service: May 01, 2025 Billing Provider: VERONICA CUENCA MD Common Visit Codes: [id number] INP/OBS CARE (MOD) RUPESH HANCOCK RESIDENT May 01, 2025 15:18
[2025-05-01 15:28] VITALS: PULSE 74; RESP 18; O2SAT 99
--- NOTE | 2025-05-01 15:55 | DVH ---
ULTRASOUND ABDOMEN, LIMITED RIGHT UPPER QUADRANT: REASON FOR EXAM: Right upper quadrant pain. Symptomatic cholelithiasis. TECHNIQUE: Real-time sector scans in the transverse and longitudinal planes were obtained through the right upper quadrant of the abdomen. FINDINGS: The liver is enlarged at 16.8 cm in length. There is hepatopetal flow in the portal vein. There is no intrahepatic biliary ductal dilatation. The common bile duct measures 5 mm. No gallstones or sludge are identified. There is a tiny nonshadowing nonvascular polyp at the gallbladder neck measuring approximately 0.5 cm. There is no gallbladder wall thickening nor pericholecystic fluid. There is no sonographic Mcmullen's sign. The pancreas is partially obscured by bowel gas. Within the head of the pancreas, there is an approximately 2.1 x 2.0 x 3.3 cm mostly cystic structure. The right kidney measures 9.1 cm. No hydronephrosis or nephrolithiasis is identified. There is no evidence of right renal mass or cyst. The visualized portions of the abdominal aorta demonstrate no evidence of aneurysmal dilatation. The visualized inferior vena cava is unremarkable. There is no free fluid identified in the right upper quadrant. IMPRESSION: No gallstone identified. Approximately 0.5 cm polyp at the gallbladder neck. The liver is enlarged at 16.8 cm in length. Complex, 3.3 cm mostly cystic structure within the head of the pancreas. Recommend further evaluation with MRI of the pancreas.
[2025-05-01 21:00] VITALS: BP 129/72; PULSE 57; RESP 16; TEMP 98.5; O2SAT 100
[2025-05-01] MEDS ORDERED: SODIUM CHLOR 0.9% PF (SALINE LOCK) 10ML VIAL/SYR IV SCH (22:00)
[2025-05-02] MEDS ORDERED: PANTOPRAZOLE 40 MG/10 ML VIAL INJ IV SCH (10:00)
== END 2025-05-01 21:17 | disposition left against medical advice (07) | DRG 254 ==
LOC: ER 08:46 → OVERFLOW 14:45
PROVIDERS: ATTEND Emergency Medicine
DX: K37 Unspecified appendicitis (principal); K80.10 Calculus of gallbladder with chronic cholecystitis without obstruction; R65.10 Systemic inflammatory response syndrome (SIRS) of non-infectious origin without acute organ dysfunction; E66.812 Obesity, class 2; Z53.29 Procedure and treatment not carried out because of patient's decision for other reasons; E87.6 Hypokalemia; Z68.36 Body mass index [BMI] 36.0-36.9, adult; F12.90 Cannabis use, unspecified, uncomplicated
CPT/HCPCS: 36415; 74176; 76705; 80053; 81001; 81025; 83605; 83690; 85025; 86301; 87040; 96361; 96374; 96375; G0378; J1885; J2405